=== PATIENT | male | born 1980 | race American Indian/Alaskan Native ===

== ENCOUNTER 2017-11-20 07:40 | Day surgery (SDC) | payer OTHER ==
[~2017-11-20 07:40] MED LIST: ANCEF/STERILE WATER 2 GM/20 ML IV NR
[2017-11-20] MEDS ORDERED: LACTATED RINGERS 1,000 ML ONE (09:33)
[2017-11-20] MEDS ORDERED: ZOFRAN IV PRN (09:44)
[2017-11-20] MEDS ORDERED: DILAUDID IV PRN (09:44)
[2017-11-20] MEDS ORDERED: DEMEROL IV PRN (09:44)
--- NOTE | 2017-11-20 09:45 | Anesthesia Consultation ---
Anesthesia Consult and Med Hx Date of service: 11/20/17 - Airway Anesthetic Teeth Evaluation: Good ROM Head & Neck: Adequate Mental/Hyoid Distance: Adequate Mallampati Class: Class II Intubation Access Assessment: Probably Good - Pulmonary Exam CTA: Yes - Cardiac Exam Cardiac Exam: RRR - Pre-Operative Health Status ASA Pre-Surgery Classification: ASA2 Proposed Anesthetic Plan: General (GA with LMA) - Pulmonary Hx Smoking: No Hx Sleep Apnea: No (ANGELES PRE SCREEN LOW RISK) - Cardiovascular System Hx Hypertension: No - Central Nervous System Hx Psychiatric Problems: Yes (PTSD ( )) - Other Systems Hx Cancer: No
--- NOTE | 2017-11-20 09:45 | Anesthesia Day of Surgery ---
Anesthesia Day of Surgery - Day of Surgery Patient Examined: Yes Patient H&P Reviewed: Yes Patient is NPO: Yes
[2017-11-20] MEDS ORDERED: LACTATED RINGERS 1,000 ML IV SCH (10:00)
[2017-11-20] MEDS ORDERED: VERSED IV NR (10:00)
[2017-11-20] MEDS ORDERED: NACL 0.9% 1000 ML 1,000 ML IV SCH (10:00)
[2017-11-20] MEDS ORDERED: DIPRIVAN 10 MG/ML IV ONE (10:06)
[2017-11-20] MEDS ORDERED: XYLOCAINE MPF 2% ONE (10:06)
[2017-11-20] MEDS ORDERED: DILAUDID ONE (10:07)
[2017-11-20] MEDS ORDERED: DECADRON ONE (10:32)
[2017-11-20] MEDS ORDERED: ZOFRAN ONE (10:32)
[2017-11-20] MEDS ORDERED: OMNIPAQUE (300 MG) IR ONE (10:48)
--- NOTE | 2017-11-20 10:52 | Short Stay Summary ---
Short Stay Documentation Date of service: 11/20/17 - History H&P: obtained from office - Allergies and Medications Current Medications: Allergies No Known Allergies Allergy (Verified 11/19/17 13:30) Home Medications Medication Instructions Recorded Confirmed Last Taken Type No Known Home Medications [No 11/19/17 11/19/17 Unknown History Reported Home Medications] Active Medications Cefazolin Sodium (Ancef/Sterile Water 2 Gm/20 Ml) 2 gm IV PREOP NR Stop: 11/20/17 23:00 Hydromorphone HCl (Dilaudid) 0.5 mg IV Q10MIN PRN PRN Reason: Pain , Severe (7-10) Stop: 11/20/17 13:00 Sodium Chloride (Nacl 0.9% 1000 Ml) 1,000 mls @ 75 mls/hr IV DIRECT MIKI Last Admin: 11/20/17 09:43 Dose: 75 mls/hr Lactated Ringer's (Lactated Ringers) 1,000 mls @ 100 mls/hr IV DIRECT MIKI Meperidine HCl (Demerol) 25 mg IV ONCE PRN PRN Reason: Shivering Stop: 11/20/17 13:00 Midazolam HCl (Versed) 2 mg IV PREOP NR Stop: 11/20/17 23:59 Last Admin: 11/20/17 09:44 Dose: 2 mg Ondansetron HCl (Zofran) 4 mg IV ONCE PRN PRN Reason: Nausea And Vomiting Stop: 11/20/17 11:00 - Brief post op/procedure progress note Date of procedure: 11/20/17 Pre-op diagnosis: urethral stricture Post-op diagnosis: same Procedure: cysto, DVIU, RPG-----HANSEN (17F) Anesthesia: GETA Surgeon: REGIS OHARA Estimated blood loss: minimal Pathology: none Condition: stable - Hospital course Hospital course: [facility] ON CHART - Disposition Condition at discharge: Stable Disposition: DC-01 TO HOME OR SELFCARE Short Stay Discharge Plan Follow up with: RICHARD MOLINA MD [Primary Care Provider] - 7 Days
--- NOTE | 2017-11-20 11:19 | Operative Report ---
PREOPERATIVE DIAGNOSIS: Urethral stricture. POSTOPERATIVE DIAGNOSES: Urethral stricture (bulbar approximately 1 cm). PROCEDURE: Cystoscopy, direct vision internal urethrotomy, bilateral retrograde pyelograms, Nolasco catheter placement (16-H[place]er blackfeet tip). SURGEON: Edmund Sanchez MD ANESTHESIA: General. ESTIMATED BLOOD LOSS: Minimal. FLUIDS: Crystalloid. COMPLICATIONS: No complications. INDICATIONS: This patient is a 36-year-old gentleman, referred by Dr. Damien Mazariegos for evaluation of voiding dysfunction. The patient gives a history of urethral stricture, has been seen by [facility] in 2009 and 2010. He has had cystoscopies at that time, also had concerns for infertility that the evaluation is incomplete at this time. CT of abdomen and pelvis, normal; however, his voiding symptoms worsened and he presents now for a surgical intervention. The patient also gives a history of posttraumatic stress syndrome due to his experience in the . DESCRIPTION OF PROCEDURE: The patient was taken to the operative suite, placed in a supine position. After adequate general anesthesia, placed in a dorsal lithotomy position, prepped and draped in a sterile fashion. Pancystourethroscopy was performed with 22-[place]er Storz cystoscope. Obvious bulbar stricture could be a pinpoint bulbar stricture. A 0.035 Glidewire was placed. A Duncan knife was used to make a cut at the 12 o'clock position. It was a dense stricture, was able to advance the 22-[place]er scope. Nonobstructing prostate, bladder no tumors or stones, had some mild diffuse trabeculation. Bilateral retrograde pyelograms were obtained with an 8-[place]er Winston catheter and 8 mL of contrast. No filling defects or obstruction. A 16-[place]er blackfeet tip catheter was advanced over the wire. Rectal exam was benign. He was extubated and taken to recovery room in stable condition. He will go home on Cipro and Raymond. JOB# [id number] [facility]
--- NOTE | 2017-11-20 11:32 | Fluoroscopy Report ---
FLUOROSCOPY RETROGRADE UROGRAPHY: HISTORY: Urethral stricture. FINDINGS: Fluoroscopy was provided by radiology during retrograde urography by the urologist. 8 fluoroscopic images were captured. There is adequate filling of the ureters and intrarenal collecting systems with no filling defects or anatomic abnormalities identified. Please correlate with the procedural report if needed. IMPRESSION: Retrograde pyelograms within normal limits.
[2017-11-20 12:46] VITALS: BP 108/49
--- NOTE | 2017-11-20 12:56 | Post Anesthesia Evaluation ---
- Post Anesthesia Evaluation Patient Participated: Yes Airway Patent: Yes Stable Respiratory Function: Yes Nausea/Vomiting: No Temp > 96.8F: Yes Pain Manageable: Yes Adequeate Hydration: Yes Anesthesia Complications: No
== END 2017-11-20 12:50 | disposition home or self-care (01) ==
LOC: OR 07:40
PROVIDERS: ATTEND Urology
DX: N35.8 Other urethral stricture (principal); N32.89 Other specified disorders of bladder; I10 Essential (primary) hypertension; F43.10 Post-traumatic stress disorder, unspecified
CPT/HCPCS: 52281; 74420; C1758; C1769; J0690; J1100; J1170; J2250; J2405; J2704; J7030; J7120; Q9967